=== PATIENT | female | born 2000 | race Caucasian/White ===

== ENCOUNTER 2019-04-10 01:50 | Inpatient (IN) ==
[2019-04-10] MEDS ORDERED: *HR* LORazepam 1 MG TABLET PO PRN (01:56)
[2019-04-10] MEDS ORDERED: Haloperidol Lactate 5 MG/ML VIAL IM PRN (01:56)
[2019-04-10] MEDS ORDERED: MOM Conc 10 ML UD.LIQ PO PRN (01:56)
[2019-04-10] MEDS ORDERED: Mag Hydrox/Al Hydrox/Simeth 30 ML UDC PO PRN (01:56)
[2019-04-10] MEDS ORDERED: *HR* LORazepam 2 MG/ML VIAL IM PRN (01:56)
[2019-04-10] MEDS: Nicotine 14 MG PATCH.TD24 TD SCH (11:04)
[2019-04-10] MEDS: cephALEXin 500 MG CAPSULE PO SCH ×2 (11:04→16:58)
[2019-04-10] MEDS: traZODone 50 MG TABLET PO PRN (21:00)
[2019-04-10] MEDS: hydrOXYzine pamoate 25 MG CAPSULE PO PRN (21:00)
--- NOTE | 2019-04-11 08:36 | Psychiatry History & Physical ---
Date of Encounter: 04/10/19 Time of Encounter: 10:00 History of Present Illness Patient Stated Chief Complaint: won't answer Medicare Admission Attestation: For traditional Medicare patients the provided hospital inpatient services are reasonable and necessary and in the case of services not specified as inpatient-only under 42 CFR 419.22 (n), that they are appropriately provided as inpatient services in accordance 42 CFR 412.3. For Critical Access Hospital the patient may reasonably be expected to be discharged or transferred to a hospital within 96 hours after admission to the Critical Access Hospital. Admitted From: Direct Admit Plans for Post Hospital Care: Home History of Present Illness: Ms. Goyal is a 18 year old female who was admitted from [facility] with depression and suicidal ideation with a plan to get medications to OD on from her [facility] medicine cabinet. In the ER she was aggressive and hostile and spitting. Last evening she required restraint and emergency medications. When I attempted to speak with her this am she was sedated and would not rouse. Past Med Surg Social Fam HX - Past Medical History Medical history: no medical history - Past Psychiatric History Psychiatric history: Reports: depression. Denies: prior suicide attempt, previous psychiatric hospitalization Past psychiatric history details: per records no prior suicide attempts or hospitalizations. Not on psych meds. Family psychiatric history: Unknown Family History of Suicide: Unknown - Past Surgical History Surgical History: no surgical history - Social History Smoking Status: Unknown if ever smoked Smokeless Tobacco Status: No Alcohol use: none Drug use: marijuana Medications & Allergies Allergy/AdvReac Type Severity Reaction Status Date / Time No Known Allergies Allergy Verified 04/10/19 01:56 Review of Systems ROS unobtainable: due to patient condition Exam - HEENT Head exam IM: Present: atraumatic Eye exam IM: Present: normal appearance ENT exam IM: Present: mucous membranes moist - Neurological Neurological exam: Present: CN II-XII intact (grossly was sedated though) - Respiratory Respiratory exam IM: Absent: respiratory distress - GI/Abdominal GI/Abdominal exam IM: Present: no peritoneal signs - Skin Skin exam IM: Absent: cyanosis - Constitutional Vitals: Temp Pulse Resp BP Pulse Ox 98.3 F 72 18 93/59 97 04/10/19 20:39 04/10/19 20:39 04/10/19 20:39 04/10/19 20:39 04/10/19 20:39 General appearance: age & developmentally appropriate, disheveled - Musculoskeletal Gait: other (in bed) Station: relaxed Strength & Tone: normal for patient - Psychiatric Patient Orientation: Yes Person (wouldn't answer other questions but did rouse to name. ) Level of alertness: Sedated, Follows commands (minimally), Responds to painful stimuli Behavior: other (sedated) Psychomotor activity: Slowed Eye Contact: No Eye Contact Mood Description: Other (sedated) Patient description of mood: wouldn't respond Affect description: other (sedated) Speech Volume: No speech Speech pattern: non-verbal Language & Vocabulary: other (sedated) Thought Process: Slowed Thinking Thought Content: Yes Suicidal ideation (at ER) Perceptual Disturbances: No Reacting to internal stimuli Attention Span Ability: Unable to Focus, Unable to Sustain Attention Memory Description: Immediate Impaired Patient Reliability: Not Reliable Historian Fund of knowledge: Yes average Intelligence Estimate: Average Judgment: Poor Insight: None Assessment and Plan (1) Depressed Current visit: Yes Status: Acute Plan: Admit inpatient for safety and stabilization, Close observation, Suicide Precautions per unit protocol, Encourage participation in unit milieu, Group Therapy, Monitor sleep, Monitor appetite Additional Plan: not responding to questions, once she is alert will discuss medication options, encourage groups Risks, benefits, side effects, alternatives discussed w/pt: No (no meds started and sedated) Patient agreeable to treatment: No (no meds started adn sedated) Estimated Length of Stay (Days): 4 Qualifiers: Depression Type: major depressive disorder Major depression recurrence: recurrent Active/Remission status: currently active Major depression episode severity: severe Psychotic features: without psychotic features Qualified Code(s): F33.2 - Major depressive disorder, recurrent severe without psychotic features
--- NOTE | 2019-04-11 10:39 | Psychiatry Progress Note ---
Date of Encounter: 04/11/19 Time of Encounter: 09:30 Subjective Interval history: Patient was willing to speak with me today. She told me that she was having suicidal ideations on the day she presented to the emergency room but she is no longer experiencing them. She is future oriented and wants to go back to live with her friend which was a good situation. She does acknowledge that she has had depression with sad mood, decreased interest, feelings of guilt and worthlessness, and low energy. She reports some irritability but no other manic symptoms. She reports she is future oriented and wants to go back home as soon as she can. She was agreeable to trial of an antidepressant. No psychotic symptoms. Review of Systems Psychiatric: Reports: depression, change in appetite, anhedonia. Denies: suicidal ideation, homicidal ideation, auditory hallucinations, visual hallucinations Results - Vital Signs Vital Signs: Temp Pulse Resp BP Pulse Ox 98.3 F 72 18 93/59 97 04/10/19 20:39 04/10/19 20:39 04/10/19 20:39 04/10/19 20:39 04/10/19 20:39 Assessment and Plan (1) Depressed Current visit: Yes Status: Acute Plan: Continue hospitalization, Close observation, Suicide Precautions per unit protocol, Encourage participation in unit milieu, Group Therapy, Monitor sleep, Monitor appetite Additional Plan: start zoloft 50mg po qam for depression. Encourage group therapy. Therapist will work on discharge planning tomorrow. Risks, benefits, side effects, alternatives discussed w/pt: Yes Patient agreeable to treatment: Yes Qualifiers: Depression Type: major depressive disorder Major depression recurrence: recurrent Active/Remission status: currently active Major depression episode severity: severe Psychotic features: without psychotic features Qualified Code(s): F33.2 - Major depressive disorder, recurrent severe without psychotic features Consult Discharge Plan - Plan Referrals: NONE,PCP [Primary Care Provider] - Psychiatry Exam - Constitutional Vitals: Temp Pulse Resp BP Pulse Ox 98.3 F 72 18 93/59 97 04/10/19 20:39 04/10/19 20:39 04/10/19 20:39 04/10/19 20:39 04/10/19 20:39 General appearance: age & developmentally appropriate, disheveled - Musculoskeletal Gait: other (in bed) Station: relaxed Strength & Tone: normal for patient - Psychiatric Patient Orientation: Yes Person, Yes Time, Yes Place, Yes Circumstance Level of alertness: Alert Behavior: calm Psychomotor activity: Slowed Eye Contact: Minimal Contact Mood Description: Depressed Patient description of mood: alright Affect description: congruent with mood Speech Volume: Normal Speech pattern: normal rate Language & Vocabulary: consistent with education Thought Process: Linear, Goal Oriented Thought Content: No Suicidal ideation, No Homicidal ideation, No Overt delusions Perceptual Disturbances: No Auditory hallucinations, No Visual hallucinations Attention Span Ability: Capable of Focused Attention Memory Description: Grossly Intact Patient Reliability: Reliable Historian Fund of knowledge: Yes abstraction ability, Yes aware of current events Intelligence Estimate: Average Judgment: Fair Insight: Partial
[2019-04-11] MEDS: Nicotine 14 MG PATCH.TD24 TD SCH ×2 (12:03→19:56)
[2019-04-11] MEDS: cephALEXin 500 MG CAPSULE PO SCH ×3 (12:03→17:06)
[2019-04-11] MEDS: Acetaminophen 325 MG TABLET PO PRN (17:33)
[2019-04-12] MEDS: cephALEXin 500 MG CAPSULE PO SCH ×3 (04:31→16:49)
[2019-04-12] MEDS: Nicotine 14 MG PATCH.TD24 TD SCH ×2 (09:04→17:20)
--- NOTE | 2019-04-12 10:43 | Psychiatry Progress Note ---
Date of Encounter: 04/12/19 Time of Encounter: 10:39 Subjective Interval history: Client states her mood has improved with the Zoloft although she endorses some nausea today. Hard to say if the Zoloft is contributing as she is also taking an antibiotic for a UTI and she is on her menstrual cycle. Client denies ever having had mental health services in the past but reports a long history of depression with suicidal thoughts and attempts. Limited coping skills. Eager to attend the groups on the unit today to learn new and better ways of dealing with her emotions. Plans to return to live with a friend at the time of discharge but does not feel safe to leave the hospital yet. Review of Systems Constitutional: Denies: fever, chills, weakness, weight change Eyes: Denies: eye pain, vision change Ears, Nose, Throat: Denies: ear pain, throat pain, dental pain, hearing loss, congestion Cardiovascular: Denies: chest pain, palpitations, dyspnea on exertion Respiratory: Denies: cough, dyspnea, wheezes Gastrointestinal: Reports: nausea Musculoskeletal: Denies: joint swelling, joint pain Neurological: Denies: headache, weakness, numbness, memory loss Psychiatric: Reports: depression, change in appetite, anhedonia. Denies: suicidal ideation, homicidal ideation, auditory hallucinations, visual hallucinations Results - Vital Signs Vital Signs: Temp Pulse Resp BP Pulse Ox 97.2 F L 86 16 119/79 98 04/12/19 09:00 04/12/19 09:00 04/12/19 09:00 04/12/19 09:00 04/12/19 09:00 Assessment and Plan (1) Depressed Current visit: Yes Status: Acute Plan: Continue hospitalization, Close observation, Suicide Precautions per unit protocol, Encourage participation in unit milieu, Group Therapy, Monitor sleep, Monitor appetite Risks, benefits, side effects, alternatives discussed w/pt: Yes Patient agreeable to treatment: Yes Qualifiers: Depression Type: major depressive disorder Major depression recurrence: recurrent Active/Remission status: currently active Major depression episode severity: severe Psychotic features: without psychotic features Qualified Code(s): F33.2 - Major depressive disorder, recurrent severe without psychotic features Consult Discharge Plan - Plan Referrals: NONE,PCP [Primary Care Provider] - Psychiatry Exam - Constitutional Vitals: Temp Pulse Resp BP Pulse Ox 97.2 F L 86 16 119/79 98 04/12/19 09:00 04/12/19 09:00 04/12/19 09:00 04/12/19 09:00 04/12/19 09:00 General appearance: age & developmentally appropriate, well-groomed, well- nourished - Musculoskeletal Gait: normal Station: relaxed Strength & Tone: normal for patient - Psychiatric Patient Orientation: Yes Person, Yes Time, Yes Place Level of alertness: Alert Behavior: calm, cooperative Psychomotor activity: Normal Eye Contact: Maintains Eye Contact Mood Description: Depressed Affect description: congruent with mood Speech Volume: Normal Speech pattern: normal rate, normal rhythm, normal tone, fluent, spontaneous Language & Vocabulary: consistent with education Thought Process: Linear Thought Content: No Suicidal ideation, No Homicidal ideation, No Overt delusions Perceptual Disturbances: No Auditory hallucinations, No Visual hallucinations Attention Span Ability: Capable of Focused Attention Memory Description: Grossly Intact Patient Reliability: Reliable Historian Intelligence Estimate: Average Judgment: Limited Insight: Partial
[2019-04-12] MEDS: hydrOXYzine pamoate 25 MG CAPSULE PO PRN (21:15)
[2019-04-12] MEDS: traZODone 50 MG TABLET PO PRN (21:15)
[2019-04-12] MEDS: Acetaminophen 325 MG TABLET PO PRN (22:35)
[2019-04-13] MEDS: cephALEXin 500 MG CAPSULE PO SCH ×2 (00:03→09:31)
[2019-04-13] MEDS: Acetaminophen 325 MG TABLET PO PRN (07:52)
[2019-04-13] MEDS: Nicotine 14 MG PATCH.TD24 TD SCH (09:32)
--- NOTE | 2019-04-13 10:30 | Discharge Summary ---
Date of Encounter: 04/13/19 Time of Encounter: 10:21 Diagnosis - Discharge Diagnosis (1) Depressed Status: Acute Qualifiers: Depression Type: major depressive disorder Major depression recurrence: re current Active/Remission status: currently active Major depression episode severity: severe Psychotic features: without psychotic features Qualified Code(s): F33.2 - Major depressive disorder, recurrent severe without psychotic features Medications - Discharge Medications Prescriptions: cephALEXin [Keflex] 500 mg PO Q8HR #15 capsule Sertraline [Zoloft] 50 mg PO DAILY #30 tablet Sertraline [Zoloft] 50 mg PO DAILY #30 tablet 04/13/19 [Rx] cephALEXin [Keflex] 500 mg PO Q8HR #15 capsule 04/13/19 [Rx] Allergy/AdvReac Type Severity Reaction Status Date / Time No Known Allergies Allergy Verified 04/10/19 01:56 Provider Date of admission: 04/10/19 01:50 Primary care physician: PCP NONE Discharging clinician: Izabella Rowland Psychiatry Exam - Constitutional Vitals: Temp Pulse Resp BP Pulse Ox 98.3 F 81 16 117/78 98 04/12/19 21:00 04/12/19 21:00 04/12/19 21:00 04/12/19 21:00 04/12/19 09:00 General appearance: age & developmentally appropriate, well-groomed, well- nourished - Musculoskeletal Gait: normal Station: relaxed Strength & Tone: normal for patient - Psychiatric Patient Orientation: Yes Person, Yes Time, Yes Place Level of alertness: Alert Behavior: calm, cooperative Psychomotor activity: Normal Eye Contact: Maintains Eye Contact Mood Description: Euthymic/stable Affect description: congruent with mood, full range Speech Volume: Normal Speech pattern: normal rate, normal rhythm, normal tone, fluent, spontaneous Language & Vocabulary: consistent with education Thought Process: Linear, Goal Oriented Thought Content: No Suicidal ideation, No Homicidal ideation, No Overt delusions Perceptual Disturbances: No Auditory hallucinations, No Visual hallucinations Attention Span Ability: Capable of Focused Attention Memory Description: Grossly Intact Patient Reliability: Questionable Historian Fund of knowledge: Yes abstraction ability, Yes aware of current events Intelligence Estimate: Average Judgment: Limited Insight: Partial Hospital Course Hospital course: Ms. Goyal is a 18 year old female who was admitted for SI with a plan to overdose on her friend's medication. No previous mental health care. She was started on Zoloft with good clinical results. As of yesterday she was denying SI, intent, or plan but she was eager to attend groups to learn some new coping skills. She attended and participated in the groups and feels ready to go home today. She will be returning to live with her friend and client states this is a supportive environment for her. She is being linked with [facility] for outpatient mental health care and she will be seeing a counselor in addition to a prescriber. Today client is denying SI, intent, or plan. She is denying HI/AH/VH. Sleeping and eating well. Social with peers. Future oriented. Feels safe for discharge. Total time spent with client greater than 30 minutes. Patient was educated of her diagnosis and the risks, benefits, and side effects of this treatment and alternative treatment options and was monitored for responsiveness and side effects. Mood, anxiety, sleep, appetite, and interest improved, as did future orientation. Self-harm thoughts subsided, thinking cleared, psychosis resolved, and mood stabilized. Patient was able to attend both individual and group therapy sessions as well as meeting with the psychiatrist daily and urged to discuss any medication or treatment issues or other concerns. The patient was educated primarily by verbal means about their diagnosis and manifestations in their life. The option for treatment including group and individual therapy programming was offered to the patient in the use of medications with all their potential risks, benefits, and side effects were discussed with the patient at length. The patient was given the opportunity to ask questions and was noted to participate in the treatment in the planning process. The patient felt ready and eager to be discharged from the inpatient psychiatric unit to continue on with treatment as an outpatient. The patient agreed that she is safe for this disposition. The patient was considered to be able to participate in informed consent and decision making with respect to medical, legal, and financial issues of the time of discharge. At the time of discharge the patient adamantly denied any concerns for lethality including suicidal or homicidal thoughts ideations or plans and was future oriented toward ongoing mental health care, medical follow-up and sobriety. - Time Spent with Patient Total time spent providing and/or coordinating discharge services: Greater than 30 minutes Assessment and Plan - Patient/Caregiver Discharge Instructions Activity: resume usual activities as tolerated Diet: regular diet - Follow [facility]Outside] Functional capacity at discharge: independent ambulation Overall status at discharge: Stable Disposition: Home, Self-Care Quality - Multiple Antipsychotics Patient discharged on 2 or more antipsychotic medications: No Procedures - Procedures Procedures: Medication Management, Crisis Stabilization, Supportive Therapy, Group Therapy
[2019-04-13 12:14] VITALS: BP 122/78
== END 2019-04-13 11:50 | disposition home or self-care (01) | DRG 751 ==
LOC: 1ANU 01:50
PROVIDERS: ADMIT Psychiatry & Neurology Psychiatry; ATTEND Psychiatry & Neurology Psychiatry

== ENCOUNTER 2020-05-31 17:06 | Observation (INO) ==
[2020-05-31 17:33] LABS: Bacteria,Urine Few per hpf (None-Few); Bilirubin,Urine Negative (Negative); Blood,Urine Negative (Negative); Clarity,Urine Clear (Clear); Color,Urine Yellow (Yellow); Glucose,Urine (UA) Normal (Normal); Ketones,Urine Negative (Negative); Leukocyte Esterase,Urine Large (Negative); Mucus,Urine Few per lpf (None-Few); Nitrite,Urine Negative (Negative); Protein,Urine Trace mg/dL (Neg-Trace); RBC,Urine 0-3 per hpf (0-3); Squamous Epithelial Cell,Urine Few per hpf (None-Few); WBC,Urine 15-30 per hpf (0-3)
[2020-05-31 17:43] LABS: Basophils # 0.1 K/mcL (0.0-0.2); Basophils % 0.7 %; Eosinophils % 0.2 %; Hematocrit 40.7 % (35.3-44.9); Hemoglobin 13.6 g/dL (11.5-15.4); Immature Granulocytes % 0.2 % (0-4); Lymphocytes # 2.3 K/mcL (0.6-4.6); Lymphocytes % 21.6 %; Mean Corpuscular HGB Conc 33.4 g/dL (31.6-35.5); Mean Corpuscular Hemoglobin 31.1 pg (28.0-33.3); Mean Corpuscular Volume 92.9 fL (83.0-100.0); Mean Platelet Volume 11.6 fL (9.4-12.4); Monocytes # 0.5 K/mcL (0.0-1.3); Monocytes % 4.3 %; Neutrophils # 7.7 K/mcL (1.6-8.9); Platelet Count 263 K/mcL (140-400); Red Blood Count 4.38 M/mcL (3.82-4.97); Red Cell Distribution Width 12.4 % (11.5-14.5); White Blood Count 10.6 K/mcL (4.3-11.1)
[2020-05-31 17:57] LABS: Amphetamine Screen,Urine Negative ng/mL (Cutoff=1000); Barbiturate Screen,Urine Negative ng/mL (Cutoff=200); Benzodiazepines Screen,Urine Negative ng/mL (Cutoff=200); Cannabinoid Screen,Urine Positive ng/mL (Cutoff = 50); Cocaine Screen,Urine Negative ng/mL (Cutoff= 300); Opiate Screen,Urine Negative ng/mL (Cutoff=300); Phencyclidine Screen,Urine Negative ng/mL (Cutoff=25)
[2020-05-31 18:03] LABS: Acetaminophen < 10 mcg/mL (10-20); BUN/Creatinine Ratio 13 (6-26); Blood Urea Nitrogen 8 mg/dL (6-20); Calcium 9.4 mg/dL (8.6-10.3); Carbon Dioxide 28 mEq/L (23-29); Chloride 106 mEq/L (98-107); Chol/HDL Ratio 3.6 (0-4.9); Cholesterol 164 mg/dL (< 200); Ethanol < 10 mg/dL (Less than 10); Glucose 105 mg/dL (70-105); HDL Cholesterol 45 mg/dL (40-59); LDL Cholesterol,Calculated 105 mg/dL (< 100); Osmolality,Calculated 287 (280-300); Potassium 3.4 mEq/L (3.5-5.1); Salicylate < 2.5 mg/dL (15.0-30.0); Sodium 139 mEq/L (136-145); Triglycerides 68 mg/dL (< 150); eGFR For African Americans > 60 (> 60); eGFR For Non-African Americans > 60 (> 60)
[2020-05-31] MEDS ORDERED: traZODone 50 MG TABLET PO PRN (19:49)
[2020-05-31] MEDS ORDERED: haloperidoL 5 MG TABLET PO PRN (19:49)
[2020-05-31] MEDS ORDERED: MOM Conc 10 ML UD.LIQ PO PRN (19:49)
[2020-05-31] MEDS ORDERED: *HR* LORazepam 1 MG TABLET PO PRN (19:49)
[2020-05-31] MEDS ORDERED: Haloperidol Lactate 5 MG/ML VIAL IM PRN (19:49)
[2020-05-31] MEDS ORDERED: *HR* LORazepam 2 MG/ML VIAL IM PRN (19:49)
[2020-05-31] MEDS ORDERED: Acetaminophen 325 MG TABLET PO PRN (19:56)
[2020-05-31] MEDS ORDERED: Nicotine 2 MG GUM BC PRN (19:56)
[2020-05-31] MEDS ORDERED: OLANZapine 10 MG TAB.RAPDIS PO PRN (19:59)
[2020-05-31 20:21] LABS: Estimated Average Glucose 105 mg/dl
[2020-06-01 08:50] VITALS: BP 100/63
[2020-06-01] MEDS ORDERED: hydrOXYzine pamoate 25 MG CAPSULE PO SCH (15:00)
[2020-06-01] MEDS ORDERED: traZODone 50 MG TABLET PO SCH (21:00)
[2020-06-01] MEDS ORDERED: QUEtiapine Fumarate 25 MG TABLET PO SCH (21:00)
== END 2020-06-01 17:30 | disposition home or self-care (01) ==
LOC: EMEROOARM 17:06 → 1ANU 19:44 → INTOOBSV 19:44 → 1ANU 20:45
PROVIDERS: ADMIT Psychiatry & Neurology Forensic Psychiatry; ATTEND Psychiatry & Neurology Forensic Psychiatry